=== PATIENT | female | born 1965 | race Two or more races ===

== ENCOUNTER 2024-03-01 14:59 | Inpatient (IN) | payer MEDICARE, MEDICAID ==
[~2024-03-01] VITALS: Ht 162.6 cm; Wt 79.3 kg
[2024-03-01 15:51] LABS: Alanine Aminotransferase 19 U/L (7-40); Albumin 2.4 g/dL (3.2-4.8); Alkaline Phosphatase 101 U/L (46-116); Anion Gap 6 (5-15); Aspartate Aminotransferase 58 U/L (13-40); BUN/Creatinine Ratio 56.4 (10.0-20.0); Blood Urea Nitrogen 22 mg/dL (9-23); Calcium 8.3 mg/dL (8.7-10.4); Carbon Dioxide 33 mmol/L (20-30); Chloride 108 mmol/L (98-107); Glucose 85 mg/dL (74-106); Potassium 3.2 mmol/L (3.5-5.1); Sodium 147 mmol/L (136-145)
[2024-03-01 15:52] LABS: Bilirubin, Total 0.4 mg/dL (0.2-1.0); Total Protein 4.1 g/dL (5.7-8.2)
[2024-03-01] MEDS: FUROSEMIDE 20 MG/2 ML VIAL IV ONE (16:31)
[2024-03-01 16:32] VITALS: PULSE 90; RESP 16; O2SAT 98
[2024-03-01 16:33] LABS: Urine Bacteria None Seen /hpf (None Seen)
[2024-03-01 16:45] LABS: Urine Blood Negative /uL (Negative); Urine Clarity Clear (Clear); Urine Color Yellow (Yellow); Urine Protein, UAD TRACE (Negative); Urine Urobilinogen Normal (Negative); Urine WBC 5 /hpf (0 - 5)
[2024-03-01 17:04] LABS: Hemoglobin 8.2 g/dL (12.2-16.2); White Blood Cell 4.6 10^3/uL (4.4-10.8)
[2024-03-01 17:06] LABS: Hematocrit 25.6 % (36.0-46.0); Mean Corpuscular Hemoglobin 24.6 pg (28.0-32.0); Mean Corpuscular Hgb Conc. 32.1 g/dL (32.0-36.0); Mean Corpuscular Volume 76.5 fL (80.0-100.0); Platelet Count (auto) 96 10^3/uL (140-450); Red Blood Cells 3.35 10^6/uL (4.0-5.20)
[2024-03-01 17:12] LABS: Red Cell Distribution Width 26.2 % (11.8-14.3)
[2024-03-01 17:13] LABS: Basophils % (manual) 0 (0.0-2.0); Blast Cells 0; Eosinophils % (manual) 0 (0-7); Metamyelocytes % 0; Myelocytes % 0; Promyelocytes % 0; Reactive Lymphocytes 0
[2024-03-01] MEDS ORDERED: ACETAMINOPHEN 325 MG TAB PO PRN (17:45)
[2024-03-01] MEDS ORDERED: HYDROcodone-ACET 5/325MG TAB PO PRN (17:45)
[2024-03-01] MEDS ORDERED: ONDANSETRON HCL 4 MG/2 ML VIAL IV PRN (17:45)
[2024-03-01] MEDS: POTASSIUM EFFERVESENT TAB 25 MEQ PO ONE (17:52)
[2024-03-01] MEDS: ALBUMIN 25% 100 ML IV ONE (18:56)
[2024-03-01 19:15] LABS: Band Neutrophils % (manual) 7; Lymphocytes % (manual) 2 (10.0-50.0)
[2024-03-01 19:16] LABS: Anisocytosis Moderate; Hypochromia Slight; Monocytes % (manual) 1 (0-12); Platelet Estimate Decreased
[2024-03-01] MEDS: DOXYCYCLINE 100MG/250ML 250 ML IV ONE (19:29)
[2024-03-01] MEDS ORDERED: MORPHINE SULFATE INJ 2 MG/ml SYRG IV PRN (21:45)
[2024-03-01] MEDS ORDERED: NITROGLYCERIN 0.4 MG SL TAB SL PRN (21:45)
[2024-03-01] MEDS: SODIUM CHLOR 0.9% PF (SALINE LOCK) 10ML VIAL/SYR IV SCH (22:02)
[2024-03-01] MEDS: APIXABAN 2.5 MG TAB PO SCH (22:03)
[2024-03-01] MEDS: FAMOTIDINE (10MG/ML) 2ML VL IV SCH (22:03)
[2024-03-02] VITALS (7 sets, daily range): BP systolic 112–152; BP diastolic 53–70; PULSE 80–89; RESP 16–19; TEMP 97.7–99.4; O2SAT 95–98
[2024-03-02 06:43] LABS: Alanine Aminotransferase 14 U/L (7-40); Alkaline Phosphatase 91 U/L (46-116); Aspartate Aminotransferase 41 U/L (13-40); Carbon Dioxide 34 mmol/L (20-30); Chloride 105 mmol/L (98-107); Glucose 83 mg/dL (74-106); Potassium 3.2 mmol/L (3.5-5.1)
[2024-03-02 06:44] LABS: Anion Gap 7 (5-15); BUN/Creatinine Ratio 53.8 (10.0-20.0); Bilirubin, Total 0.5 mg/dL (0.2-1.0); Blood Urea Nitrogen 21 mg/dL (9-23); Sodium 146 mmol/L (136-145); Total Protein 5.1 g/dL (5.7-8.2)
[2024-03-02 07:46] LABS: Red Blood Cells 2.72 10^6/uL (4.0-5.20); White Blood Cell 4.3 10^3/uL (4.4-10.8)
[2024-03-02 07:49] LABS: Hematocrit 20.9 % (36.0-46.0); Mean Corpuscular Hemoglobin 24.2 pg (28.0-32.0); Mean Corpuscular Hgb Conc. 31.6 g/dL (32.0-36.0); Mean Corpuscular Volume 76.8 fL (80.0-100.0); Platelet Count (auto) 70 10^3/uL (140-450)
[2024-03-02 07:51] LABS: Red Cell Distribution Width 25.7 % (11.8-14.3)
[2024-03-02 07:52] LABS: Hemoglobin 6.6 g/dL (12.2-16.2)
[2024-03-02 07:53] LABS: Basophils % (manual) 0 (0.0-2.0); Blast Cells 0; Eosinophils % (manual) 0 (0-7); Monocytes % (manual) 0 (0-12); Promyelocytes % 0; Reactive Lymphocytes 0
[2024-03-02] MEDS: DOXYCYCLINE 100MG/250ML 250 ML IV SCH (08:19)
[2024-03-02 08:40] LABS: Anisocytosis Slight; Band Neutrophils % (manual) 30; Hypochromia Slight; Lymphocytes % (manual) 2 (10.0-50.0); Metamyelocytes % 1; Myelocytes % 1; Platelet Estimate Decreased
[2024-03-02] MEDS ORDERED: VANCOMYCIN PER PHARMACY 0 MG IV SCH (09:00)
[2024-03-02] MEDS ORDERED: MORPHINE SULFATE INJ 2 MG/ml SYRG IV PRN (09:00)
[2024-03-02] MEDS: VANCOMYCIN 1GM/200ML 200 ML IV SCH (11:04)
[2024-03-02] MEDS: FUROSEMIDE 20 MG/2 ML VIAL IV SCH (11:04)
[2024-03-02] MEDS: POTASSIUM CHL 20MEQ/100ML 100 ML IV SCH (11:04)
[2024-03-02] MEDS: CEFEPIME 2GM/50ML NS 50 ML IV SCH (14:00)
[2024-03-02] MEDS ORDERED: CEFEPIME 2GM/50ML NS 50 ML IV SCH (14:00)
[2024-03-02 14:14] LABS: % Iron Saturation 6.4 % (15-50)
[2024-03-02] MEDS: MAGNESIUM SULFATE 1GM/100ML 100 ML IV SCH (14:52)
[2024-03-02] MEDS: VANCOMYCIN 1.25GM/250ML 250 ML IV SCH (18:51)
[2024-03-02 19:30] LABS: Rapid Influenza A Negative (Negative); Rapid Influenza B Negative (Negative)
[2024-03-02 19:56] LABS: COVID19 ANTIGEN SOFIA FIA NEGATIVE (NEGATIVE)
[2024-03-02] MEDS ORDERED: APIX2.5T PO (20:07)
[2024-03-02] MEDS ORDERED: LACT10SO3 PO (20:07)
[2024-03-02] MEDS ORDERED: HYDR4TAB90 PO (20:07)
[2024-03-02 21:32] LABS: Albumin 1.7 g/dL (3.2-4.8); Alkaline Phosphatase 51 U/L (46-116); Anion Gap 2 (5-15); Aspartate Aminotransferase 35 U/L (13-40); BUN/Creatinine Ratio 41.2 (10.0-20.0); Bilirubin, Total 0.3 mg/dL (0.2-1.0); Blood Urea Nitrogen 14 mg/dL (9-23); Calcium 7.6 mg/dL (8.7-10.4); Carbon Dioxide 32 mmol/L (20-30); Chloride 110 mmol/L (98-107); Glucose 96 mg/dL (74-106); Magnesium 1.9 mg/dL (1.6-2.6); Potassium 3.1 mmol/L (3.5-5.1); Sodium 144 mmol/L (136-145); Total Protein 3.2 g/dL (5.7-8.2)
[2024-03-02 21:41] LABS: Alanine Aminotransferase < 9 U/L (7-40)
[2024-03-02] MEDS: DOCUSATE SOD 100 MG CAP PO PRN (21:47)
[2024-03-02 22:25] LABS: Hematocrit 24.1 % (36.0-46.0); Hemoglobin 7.6 g/dL (12.2-16.2); Mean Corpuscular Hemoglobin 25.1 pg (28.0-32.0); Mean Corpuscular Hgb Conc. 31.4 g/dL (32.0-36.0); Mean Corpuscular Volume 79.9 fL (80.0-100.0); Platelet Count (auto) 62 10^3/uL (140-450); Red Blood Cells 3.01 10^6/uL (4.0-5.20); White Blood Cell 5.3 10^3/uL (4.4-10.8)
[2024-03-02 22:27] LABS: Red Cell Distribution Width 23.7 % (11.8-14.3)
[2024-03-02 22:29] LABS: Basophils % (manual) 0 (0.0-2.0); Blast Cells 0; Eosinophils % (manual) 0 (0-7); Metamyelocytes % 0; Myelocytes % 0; Promyelocytes % 0; Reactive Lymphocytes 0
[2024-03-02 22:48] LABS: Anisocytosis Slight; Band Neutrophils % (manual) 19; Lymphocytes % (manual) 4 (10.0-50.0); Monocytes % (manual) 2 (0-12); Platelet Estimate Decreased
[2024-03-03] VITALS (7 sets, daily range): BP systolic 95–109; BP diastolic 39–50; PULSE 77–88; RESP 19–21; TEMP 96.7–98.6; O2SAT 94–100
[2024-03-03] MEDS ORDERED: POTASSIUM CHL 20 Meq TABLET PO ONE (06:45)
[2024-03-03 07:46] LABS: Alanine Aminotransferase 13 U/L (7-40); Albumin 2.7 g/dL (3.2-4.8); Alkaline Phosphatase 86 U/L (46-116); Anion Gap 7 (5-15); Aspartate Aminotransferase 33 U/L (13-40); BUN/Creatinine Ratio 45.7 (10.0-20.0); Bilirubin, Total 0.4 mg/dL (0.2-1.0); Blood Urea Nitrogen 16 mg/dL (9-23); Calcium 8.5 mg/dL (8.7-10.4); Carbon Dioxide 31 mmol/L (20-30); Chloride 107 mmol/L (98-107); Glucose 77 mg/dL (74-106); Potassium 3.1 mmol/L (3.5-5.1); Sodium 145 mmol/L (136-145); Total Protein 4.5 g/dL (5.7-8.2)
[2024-03-03 08:00] LABS: Hematocrit 24.9 % (36.0-46.0); Mean Corpuscular Volume 80.1 fL (80.0-100.0); Red Blood Cells 3.11 10^6/uL (4.0-5.20)
[2024-03-03 08:02] LABS: Hemoglobin 7.9 g/dL (12.2-16.2); Mean Corpuscular Hemoglobin 25.3 pg (28.0-32.0); Mean Corpuscular Hgb Conc. 31.6 g/dL (32.0-36.0); Platelet Count (auto) 54 10^3/uL (140-450); White Blood Cell 5.3 10^3/uL (4.4-10.8)
[2024-03-03 08:04] LABS: Red Cell Distribution Width 24.2 % (11.8-14.3)
[2024-03-03 08:05] LABS: Basophils % (manual) 0 (0.0-2.0); Blast Cells 0; Eosinophils % (manual) 0 (0-7); Myelocytes % 0; Promyelocytes % 0; Reactive Lymphocytes 0
[2024-03-03] MEDS: POTASSIUM CHL 20MEQ/100ML 100 ML IV SCH ×3 (08:07→21:08)
[2024-03-03] MEDS ORDERED: FUROSEMIDE 20 MG/2 ML VIAL IV SCH (10:00)
[2024-03-03] MEDS: FUROSEMIDE 40 MG/4 ML VIAL IV SCH (11:00)
[2024-03-03 11:02] LABS: Band Neutrophils % (manual) 18; Lymphocytes % (manual) 5 (10.0-50.0); Metamyelocytes % 2; Monocytes % (manual) 1 (0-12); Platelet Estimate Decreased
[2024-03-03 11:03] LABS: Anisocytosis Slight
[2024-03-03] MEDS: MAGNESIUM SULFATE 1GM/100ML 100 ML IV SCH ×3 (12:03→22:07)
[2024-03-03] MEDS: LACTULOSE 20Gm/30ML SOLN PO ONE (13:10)
[2024-03-03 19:27] LABS: Chloride 105 mmol/L (98-107); Potassium 2.7 mmol/L (3.5-5.1); Sodium 145 mmol/L (136-145)
[2024-03-03 19:28] LABS: Anion Gap 4 (5-15); Calcium 8.5 mg/dL (8.7-10.4); Carbon Dioxide 36 mmol/L (20-30)
[2024-03-03 19:33] LABS: BUN/Creatinine Ratio 38.6 (10.0-20.0); Blood Urea Nitrogen 17 mg/dL (9-23); Glucose 93 mg/dL (74-106)
[2024-03-04] VITALS (17 sets, daily range): BP systolic 89–122; BP diastolic 39–60; PULSE 71–86; RESP 12–22; TEMP 97.5–98.1; O2SAT 97–100
[2024-03-04 07:00] LABS: Basophils # (auto) 0 10 ^3/uL (0-0.2); Basophils % (auto) 0.1 % (0.0-2.0); Eosinophils # (auto) 0 10 ^3/uL (0-0.8); Hemoglobin 7.7 g/dL (12.2-16.2); Lymphocytes # (auto) 0.1 10 ^3/uL (0.4-5.4); Monocytes # (auto) 0 10 ^3/uL (0-1.3); White Blood Cell 3.4 10^3/uL (4.4-10.8)
[2024-03-04 07:02] LABS: Eosinophils % (auto) 0.8 % (0.0-7.0); Hematocrit 24.6 % (36.0-46.0); Lymphocytes % (auto) 2.9 % (10.0-50.0); Mean Corpuscular Hemoglobin 25.2 pg (28.0-32.0); Mean Corpuscular Hgb Conc. 31.4 g/dL (32.0-36.0); Mean Corpuscular Volume 80.2 fL (80.0-100.0); Monocytes % (auto) 0.9 % (0.0-12.0); Neutrophils # (auto) 3.2 10 ^3/uL (1.6-8.6); Neutrophils % (auto) 95.3 % (37.0-80.0); Platelet Count (auto) 40 10^3/uL (140-450); Red Blood Cells 3.06 10^6/uL (4.0-5.20)
[2024-03-04 07:05] LABS: Anion Gap 3 (5-15); Carbon Dioxide 35 mmol/L (20-30); Chloride 106 mmol/L (98-107); Potassium 2.9 mmol/L (3.5-5.1); Sodium 144 mmol/L (136-145)
[2024-03-04 07:06] LABS: Calcium 8.2 mg/dL (8.7-10.4); Red Cell Distribution Width 23.6 % (11.8-14.3)
[2024-03-04 07:11] LABS: BUN/Creatinine Ratio 34.1 (10.0-20.0); Blood Urea Nitrogen 14 mg/dL (9-23); Glucose 83 mg/dL (74-106)
[2024-03-04] MEDS: Ensure HIGH Protein Chocolate 8oz Bottle PO SCH (08:00)
[2024-03-04 08:44] LABS: Anisocytosis Slight; Platelet Estimate Decreased
[2024-03-04] MEDS: ALBUMIN 25% 100 ML IV ONE (09:11)
[2024-03-04] MEDS: POTASSIUM CHL 20MEQ/100ML 100 ML IV SCH (10:30)
[2024-03-04] MEDS: MAGNESIUM SULFATE 1GM/100ML 100 ML IV ONE (11:36)
[2024-03-04 11:45] LABS: INR 1.04 (0.9-1.15)
[2024-03-04] MEDS: VANCOMYCIN 1GM/200ML 200 ML IV SCH (12:39)
[2024-03-04] MEDS: IOHEXOL 300 MG/ML 100ML BOTTLE IJ ONE (13:45)
[2024-03-04] MEDS: LACTULOSE 20Gm/30ML SOLN PO ONE (21:27)
[2024-03-04] MEDS: NOREPINEPHRINE 8 MG/250ML KIT 250 ML IV SCH (22:38)
[2024-03-04 22:54] LABS: Chloride 106 mmol/L (98-107); Potassium 3.7 mmol/L (3.5-5.1); Sodium 146 mmol/L (136-145)
[2024-03-04 22:55] LABS: Anion Gap 3 (5-15); Carbon Dioxide 37 mmol/L (20-31)
[2024-03-04 23:00] LABS: BUN/Creatinine Ratio 54.1 (10.0-20.0); Blood Urea Nitrogen 20 mg/dL (9-23); Glucose 106 mg/dL (74-106); Magnesium 2.3 mg/dL (1.6-2.6)
[2024-03-05] VITALS (103 sets, daily range): BP systolic 84–126; BP diastolic 34–64; PULSE 62–86; RESP 9–18; TEMP 97.5–99.2; O2SAT 97–100
[2024-03-05] MEDS: LACTULOSE 20Gm/30ML SOLN PO SCH (00:01)
[2024-03-05] MEDS: FUROSEMIDE 40 MG/4 ML VIAL IV ONE (00:46)
[2024-03-05] MEDS: NOREPINEPHRINE 8 MG/250ML KIT 250 ML IV SCH (01:28)
[2024-03-05 07:06] LABS: Alanine Aminotransferase 14 U/L (7-40); Albumin 3.2 g/dL (3.2-4.8); Alkaline Phosphatase 96 U/L (46-116); Anion Gap 4 (5-15); Aspartate Aminotransferase 52 U/L (13-40); Blood Urea Nitrogen 16 mg/dL (9-23); Calcium 8.3 mg/dL (8.7-10.4); Carbon Dioxide 37 mmol/L (20-31); Chloride 105 mmol/L (98-107); Glucose 97 mg/dL (74-106); Potassium 3.3 mmol/L (3.5-5.1); Sodium 146 mmol/L (136-145)
[2024-03-05 07:07] LABS: Bilirubin, Total 0.5 mg/dL (0.2-1.0); Total Protein 5.5 g/dL (5.7-8.2)
[2024-03-05 11:09] LABS: Basophils # (auto) 0 10 ^3/uL (0-0.2); Basophils % (auto) 0.1 % (0.0-2.0); Eosinophils # (auto) 0.1 10 ^3/uL (0-0.8); Eosinophils % (auto) 1.3 % (0.0-7.0); Hematocrit 26.5 % (36.0-46.0); Hemoglobin 8.4 g/dL (12.2-16.2); Lymphocytes # (auto) 0.4 10 ^3/uL (0.4-5.4); Lymphocytes % (auto) 8.5 % (10.0-50.0); Mean Corpuscular Hemoglobin 25.2 pg (28.0-32.0); Mean Corpuscular Hgb Conc. 31.5 g/dL (32.0-36.0); Mean Corpuscular Volume 80.1 fL (80.0-100.0); Monocytes # (auto) 0.1 10 ^3/uL (0-1.3); Monocytes % (auto) 2.1 % (0.0-12.0); Neutrophils # (auto) 4.1 10 ^3/uL (1.6-8.6); Nucleated Red Blood Cells % 0.4 %; Platelet Count (auto) 43 10^3/uL (140-450); Red Blood Cells 3.31 10^6/uL (4.0-5.20); White Blood Cell 4.7 10^3/uL (4.4-10.8)
[2024-03-05 11:13] LABS: Red Cell Distribution Width 23.7 % (11.8-14.3)
[2024-03-05 11:22] LABS: Anion Gap 6 (5-15); Carbon Dioxide 35 mmol/L (20-31); Chloride 105 mmol/L (98-107); Potassium 3.3 mmol/L (3.5-5.1); Sodium 146 mmol/L (136-145)
[2024-03-05 11:23] LABS: Calcium 8.5 mg/dL (8.7-10.4)
[2024-03-05 11:28] LABS: BUN/Creatinine Ratio 39.5 (10.0-20.0); Blood Urea Nitrogen 15 mg/dL (9-23); Glucose 98 mg/dL (74-106)
[2024-03-05] MEDS: FUROSEMIDE 40 MG/4 ML VIAL IV SCH (11:36)
[2024-03-05] MEDS: POTASSIUM CHL 20MEQ/100ML 100 ML IV SCH (11:37)
[2024-03-05] MEDS: D5W 5% 1,000 ML IV SCH (16:35)
[2024-03-05] MEDS: ALBUMIN 25% 50 ML IV SCH (21:34)
[2024-03-06] VITALS (111 sets, daily range): BP systolic 87–132; BP diastolic 32–54; PULSE 61–77; RESP 7–19; TEMP 97.5–98.7; O2SAT 88–100
[2024-03-06 04:57] LABS: White Blood Cell 3.1 10^3/uL (4.4-10.8)
[2024-03-06 05:03] LABS: Hematocrit 22.5 % (36.0-46.0); Hemoglobin 7.4 g/dL (12.2-16.2); Mean Corpuscular Hemoglobin 26.1 pg (28.0-32.0); Mean Corpuscular Hgb Conc. 32.8 g/dL (32.0-36.0); Mean Corpuscular Volume 79.6 fL (80.0-100.0); Platelet Count (auto) 33 10^3/uL (140-450); Red Blood Cells 2.83 10^6/uL (4.0-5.20); Red Cell Distribution Width 22.9 % (11.8-14.3)
[2024-03-06 05:19] LABS: Alanine Aminotransferase 18 U/L (7-40); Albumin 3.3 g/dL (3.2-4.8); Alkaline Phosphatase 91 U/L (46-116); Aspartate Aminotransferase 71 U/L (13-40); BUN/Creatinine Ratio 41.9 (10.0-20.0); Blood Urea Nitrogen 13 mg/dL (9-23); Calcium 8.2 mg/dL (8.7-10.4); Chloride 101 mmol/L (98-107); Glucose 113 mg/dL (74-106); Magnesium 2.1 mg/dL (1.6-2.6); Potassium 3.5 mmol/L (3.5-5.1); Sodium 144 mmol/L (136-145)
[2024-03-06 05:20] LABS: Bilirubin, Total 0.5 mg/dL (0.2-1.0); Total Protein 5.6 g/dL (5.7-8.2)
[2024-03-06 05:22] LABS: Basophils % (manual) 0 (0.0-2.0); Blast Cells 0; Metamyelocytes % 0; Monocytes % (manual) 0 (0-12); Myelocytes % 0; Promyelocytes % 0; Reactive Lymphocytes 0
[2024-03-06 05:23] LABS: Anion Gap 2.99999 (5-15)
[2024-03-06 05:25] LABS: Carbon Dioxide > 40 mmol/L (20-31)
[2024-03-06 06:41] LABS: Band Neutrophils % (manual) 7; Eosinophils % (manual) 3 (0-7); Lymphocytes % (manual) 7 (10.0-50.0); Platelet Estimate Decreased
[2024-03-06] MEDS: LACTULOSE 20Gm/30ML SOLN PO PRN (14:34)
[2024-03-06] MEDS: VANCOMYCIN 1GM/200ML 200 ML IV SCH (21:41)
[2024-03-06] MEDS: METOCLOPRAMIDE HCL 5MG/ml INJ 2ml VIAL IV SCH (21:41)
[2024-03-07] VITALS (95 sets, daily range): BP systolic 95–137; BP diastolic 35–63; PULSE 56–84; RESP 8–18; TEMP 97.2–98.1; O2SAT 96–100
[2024-03-07 07:59] LABS: Alanine Aminotransferase 39 U/L (7-40); Albumin 3.1 g/dL (3.2-4.8); Alkaline Phosphatase 92 U/L (46-116); Aspartate Aminotransferase 138 U/L (13-40); BUN/Creatinine Ratio 52.2 (10.0-20.0); Bilirubin, Total 0.5 mg/dL (0.2-1.0); Blood Urea Nitrogen 12 mg/dL (9-23); Calcium 8.3 mg/dL (8.7-10.4); Chloride 97 mmol/L (98-107); Glucose 85 mg/dL (74-106); Hemoglobin 7.7 g/dL (12.2-16.2); Magnesium 1.8 mg/dL (1.6-2.6); Sodium 142 mmol/L (136-145); Total Protein 5.1 g/dL (5.7-8.2)
[2024-03-07 08:01] LABS: Hematocrit 23.9 % (36.0-46.0); Mean Corpuscular Hemoglobin 24.9 pg (28.0-32.0); Mean Corpuscular Volume 77.8 fL (80.0-100.0); Platelet Count (auto) 34 10^3/uL (140-450); Red Blood Cells 3.07 10^6/uL (4.0-5.20)
[2024-03-07 08:03] LABS: Anion Gap 4.99999 (5-15); Carbon Dioxide > 40 mmol/L (20-31); Red Cell Distribution Width 23.1 % (11.8-14.3)
[2024-03-07 08:04] LABS: Basophils % (manual) 0 (0.0-2.0); Blast Cells 0; Eosinophils % (manual) 0 (0-7); Metamyelocytes % 0; Monocytes % (manual) 0 (0-12); Myelocytes % 0; Promyelocytes % 0; Reactive Lymphocytes 0
[2024-03-07 09:21] LABS: Band Neutrophils % (manual) 13; Lymphocytes % (manual) 10 (10.0-50.0); Platelet Estimate Decreased; Stomatocytes Few
[2024-03-07] MEDS ORDERED: hydrALAZINE HCL 20 MG/ML VL IV PRN (10:30)
[2024-03-07] MEDS: CATHFLO ACTIVASE (ALTEPLASE) 2 MG VIAL IV ONE (12:25)
[2024-03-07] MEDS: POTASSIUM CHL 20MEQ/100ML 100 ML IV SCH (12:27)
[2024-03-07] MEDS: LACTULOSE 20Gm/30ML SOLN PO PRN (18:57)
[2024-03-08] VITALS (17 sets, daily range): BP systolic 102–146; BP diastolic 39–74; PULSE 76–90; RESP 12–29; TEMP 97.9–99; O2SAT 96–99
[2024-03-08 04:30] LABS: Mean Corpuscular Volume 78.1 fL (80.0-100.0); White Blood Cell 2.4 10^3/uL (4.4-10.8)
[2024-03-08 04:32] LABS: Hematocrit 22.4 % (36.0-46.0); Hemoglobin 7.2 g/dL (12.2-16.2); Mean Corpuscular Hemoglobin 25.1 pg (28.0-32.0); Mean Corpuscular Hgb Conc. 32.1 g/dL (32.0-36.0); Platelet Count (auto) 35 10^3/uL (140-450); Red Blood Cells 2.87 10^6/uL (4.0-5.20)
[2024-03-08 04:41] LABS: Calcium 8.2 mg/dL (8.7-10.4); Chloride 96 mmol/L (98-107); Potassium 3.2 mmol/L (3.5-5.1); Red Cell Distribution Width 23.2 % (11.8-14.3); Sodium 137 mmol/L (136-145)
[2024-03-08 04:43] LABS: Basophils % (manual) 0 (0.0-2.0); Blast Cells 0; Myelocytes % 0; Promyelocytes % 0; Reactive Lymphocytes 0
[2024-03-08 04:47] LABS: Blood Urea Nitrogen 12 mg/dL (9-23); Glucose 85 mg/dL (74-106)
[2024-03-08 05:05] LABS: Anion Gap 0.99999 (5-15)
[2024-03-08 05:06] LABS: Carbon Dioxide > 40 mmol/L (20-31)
[2024-03-08] MEDS: POTASSIUM CHL 20MEQ/100ML 100 ML IV ONE ×2 (06:40→10:02)
[2024-03-08 11:18] LABS: Band Neutrophils % (manual) 10; Eosinophils % (manual) 2 (0-7); Lymphocytes % (manual) 5 (10.0-50.0); Metamyelocytes % 1; Monocytes % (manual) 3 (0-12); Platelet Estimate Decreased
[2024-03-08 11:19] LABS: Anisocytosis Slight
[2024-03-08] MEDS: MAGNESIUM OXIDE 400 MG TAB PO ONE (19:22)
[2024-03-09 01:00] VITALS: BP 129/63; PULSE 86; RESP 19; TEMP 98.5; O2SAT 100
[2024-03-09 05:00] VITALS: BP 130/54; PULSE 80; RESP 19; TEMP 98; O2SAT 100
[2024-03-09 08:00] VITALS: PULSE 74; RESP 16; O2SAT 100
[2024-03-09 09:00] VITALS: BP 122/51; PULSE 74; RESP 16; TEMP 97.7; O2SAT 100
[2024-03-09 09:25] LABS: Base Excess 17.2 mmol/L (-2.0-3.0)
[2024-03-09] MEDS ORDERED: POTASSIUM CHL 20MEQ/100ML 100 ML IV SCH (11:00)
[2024-03-09] MEDS: MAGNESIUM OXIDE 400 MG TAB PO SCH (12:12)
[2024-03-09] MEDS: POTASSIUM CHL 20MEQ/100ML 100 ML IV SCH (12:13)
[2024-03-09 13:00] VITALS: BP 123/60; PULSE 74; RESP 18; TEMP 97.4; O2SAT 100
[2024-03-09] MEDS: acetaZOLAMIDE SODIUM 500 MG VL IV ONE (15:09)
[2024-03-09 15:11] LABS: Hematocrit 25.3 % (36.0-46.0); Hemoglobin 8.3 g/dL (12.2-16.2); Mean Corpuscular Hemoglobin 25.8 pg (28.0-32.0); White Blood Cell 2.9 10^3/uL (4.4-10.8)
[2024-03-09 15:13] LABS: Mean Corpuscular Volume 78.2 fL (80.0-100.0); Platelet Count (auto) 67 10^3/uL (140-450); Red Blood Cells 3.23 10^6/uL (4.0-5.20)
[2024-03-09 15:21] LABS: Red Cell Distribution Width 23.4 % (11.8-14.3)
[2024-03-09 15:24] LABS: Basophils % (manual) 0 (0.0-2.0); Blast Cells 0; Metamyelocytes % 0; Myelocytes % 0; Promyelocytes % 0; Reactive Lymphocytes 0
[2024-03-09 15:37] LABS: Alanine Aminotransferase 104 U/L (7-40); Alkaline Phosphatase 177 U/L (46-116); Anion Gap 2 (5-15); Calcium 7.8 mg/dL (8.7-10.4); Carbon Dioxide 37 mmol/L (20-31); Chloride 97 mmol/L (98-107); Glucose 81 mg/dL (74-106); Potassium 3.7 mmol/L (3.5-5.1); Sodium 136 mmol/L (136-145)
[2024-03-09 15:38] LABS: Aspartate Aminotransferase 308 U/L (13-40); BUN/Creatinine Ratio 52.2 (10.0-20.0); Bilirubin, Total 0.6 mg/dL (0.2-1.0); Blood Urea Nitrogen 12 mg/dL (9-23); Total Protein 5.2 g/dL (5.7-8.2)
[2024-03-09 16:13] LABS: Band Neutrophils % (manual) 1; Eosinophils % (manual) 4 (0-7); Lymphocytes % (manual) 17 (10.0-50.0); Monocytes % (manual) 3 (0-12); Platelet Estimate Decreased
[2024-03-10] MEDS ORDERED: acetaZOLAMIDE SODIUM 500 MG VL IV SCH (10:00)
== END 2024-03-09 19:40 | disposition hospice, home (50) | DRG 871 ==
LOC: ER 14:59 → EDBD 14:59 → WEST WING 21:32 → TELE 21:32 → TELE-EAST 03-02 17:47 → EAST 03-04 22:55 → WEST WING 03-05 09:38 → ICU WEST 03-05 17:33 → TELE-WESTW 03-08 13:41 → TELE-CENTR 03-08 23:33
PROVIDERS: ADMIT Internal Medicine; ATTEND Internal Medicine
PROC: 30233N1 Transfusion of Nonautologous Red Blood Cells into Peripheral Vein, Percutaneous Approach (ICD-10-PCS; principal; 2024-03-02)
DX: A41.9 Sepsis, unspecified organism (principal); E43 Unspecified severe protein-calorie malnutrition; I50.31 Acute diastolic (congestive) heart failure; J15.69 Pneumonia due to other Gram-negative bacteria; R65.21 Severe sepsis with septic shock; J96.21 Acute and chronic respiratory failure with hypoxia; C79.31 Secondary malignant neoplasm of brain; E87.4 Mixed disorder of acid-base balance; D61.818 Other pancytopenia; C79.51 Secondary malignant neoplasm of bone; C78.02 Secondary malignant neoplasm of left lung; C78.01 Secondary malignant neoplasm of right lung; Z20.822 Contact with and (suspected) exposure to COVID-19; C50.912 Malignant neoplasm of unspecified site of left female breast; Z66 Do not resuscitate; C50.911 Malignant neoplasm of unspecified site of right female breast; E87.6 Hypokalemia; D69.6 Thrombocytopenia, unspecified; D63.8 Anemia in other chronic diseases classified elsewhere; K80.20 Calculus of gallbladder without cholecystitis without obstruction; E83.42 Hypomagnesemia; K59.00 Constipation, unspecified; D50.9 Iron deficiency anemia, unspecified; I27.20 Pulmonary hypertension, unspecified; Z86.711 Personal history of pulmonary embolism; Z68.30 Body mass index [BMI] 30.0-30.9, adult
CPT/HCPCS: 36415; 36600; 70450; 71045; 71260; 74177; 76604; 80048; 80053; 80202; 81001; 82270; 82728; 82805; 83540; 83550; 83735; 83880; 84484; 85007; 85025; 85027; 85610; 85730; 86850; 86900; 86901; 86920; 87040; 87070; 87077; 87081; 87186; 87426; 87804; 93005; 93306; 97163; 99291; G0378; J0692; J3480; J3490; P9047